=== PATIENT | male | born 1990 | race Caucasian/White ===

== ENCOUNTER 2016-05-01 20:49 | Emergency (ER) | payer OTHER ==
[~2016-05-01] VITALS: Ht 175.3 cm; Wt 120.0 kg
[~2016-05-01 20:49] MED LIST: AMO500 PO; AMOX1TAB10 PO; HYDR-3498 PO; IBUP-1542 PO; NPH10OT LEFT EAR
[2016-05-01 21:32] VITALS: Ht 175.3 cm; Wt 120.0 kg
[2016-05-01] MEDS ORDERED: CIPR7.5D4 LEFT EAR (21:55)
[2016-05-01] MEDS ORDERED: IBUP-1542 PO (21:55)
--- NOTE | 2016-05-01 22:01 | ERD ---
ER Documentation Chief Complaint Date/Time DATE: 05/01/16 TIME: 21:56 Chief Complaint LEFT EAR PAIN X 2 DAYS HPI 25-year-old male presents here in emergency department for complaints of left ear pain for today. Patient described the pain as sharp pain, 6/10 scale, is worse upon movement of the outer ear area. Patient has some serous discharge. Patient does not have any fever or chills. Patient did not have any trauma in the ear. Patient does not have any foreign body in the ear. Patient does not have any problems with hearing. ROS All systems reviewed and are negative except as per history of present illness. Medications Home Meds Active Scripts Ibuprofen* (Motrin*) 600 Mg Tab, 600 MG PO Q6H Y for PAIN AND OR ELEVATED TEMP, #30 TAB Prov:ANNAMARIA HEARD [facility] 05/01/16 Ciprofloxacin Hcl/Dexameth (Ciprodex Otic Suspension) 7.5 Ml Drops.susp, 4 DROP LEFT EAR BID for 7 Days, EA Prov:ANNAMARIA HEARD [facility] 05/01/16 Ibuprofen* (Ibuprofen*) 600 Mg Tablet, 600 MG PO Q8, #14 TAB Prov:SEKOU LUNA DO 02/17/16 Amoxicillin* (Amoxicillin*) 500 Mg Cap, 500 MG PO TID for 7 Days, CAP Prov:CHERYLSEKOU DO 02/17/16 Neomycin/Polymyxin/Hydrocort* (Cortisporin* Otic) 10 Ml Susp, 4 DROP LEFT EAR QID for 7 Days, EA Prov:CHERYL,[facility] DO 02/17/16 Amoxicillin/Potassium Clav (Amox-Clav 875-125 mg Tablet) 875-125 mg Tab, 1 TAB PO BID for 7 Days, #14 TAB Prov:CHIN JORDAN PA-C 12/23/15 Neomycin/Polymyxin/Hydrocort* (Cortisporin* Otic) 10 Ml Susp, 4 DROP LEFT EAR QID for 7 Days, EA Prov:CHIN JORDAN PA-C 12/23/15 Hydrocodone Bit-Acetaminophen* ([place]*) 5-325 Mg Tab, 1 TAB PO Q4H Y for PAIN, # 10 TAB Prov:ERIN LOMAX PA-C 10/30/15 Reported Medications [None] No Conflict Check 06/15/09 Allergies Allergies: Coded Allergies: No Known Allergies (Verified Allergy, Mild, 06/15/09) PMhx/Soc History of Surgery: Yes (Appendectomy.) Hx Neurological Disorder: No Hx Respiratory Disorders: Yes (ASTHMA) Hx Cardiac Disorders: No Hx Miscellaneous Medical Probl: No Hx Alcohol Use: Yes (social drinker.) Hx Substance Use: No Hx Tobacco Use: No FmHx Family History: No coronary disease, No diabetes, No other Physical Exam Vitals Vital Signs Date Time Temp Pulse Resp B/P Pulse Ox O2 Delivery O2 Flow Rate FiO2 05/01/16 21:32 98.5 107 20 131/61 97 Physical Exam GENERAL: The patient is well developed and appropriate for usual state of health, in no apparent distress. HEENT: Atraumatic. Ears: Normal tympanic membrane, no erythema or bulging. Left ear tympanic membrane is noted to be erythematous and swelling, with serous discharge coming from the left ear. Right ear canal is normal.. Nose: normal nasal turbinates, no erythema or swelling. Normal nasal discharge. Throat: oropharynx clear. No tonsillar swelling or tonsillar exudates. No lymphadenopathy. CHEST: Clear to auscultation bilaterally. There are no rales, wheezes or rhonchi. HEART: Regular rate and rhythm. No murmurs, clicks, rubs or gallops. No S3 or S4. ABDOMEN: Soft, nontender and nondistended. Good bowel sounds. No rebound or guarding. No gross peritonitis. No gross organomegaly or masses. No Mcqueen sign or McBurney point tenderness. BACK: No midline or flank tenderness. EXTREMITIES: Equal pulses bilaterally. There is no peripheral clubbing, cyanosis or edema. No focal swelling or erythema. Full range of motion. Grossly neurovascularly intact. NEURO: Alert and oriented. Cranial nerves 2-12 intact. Motor strength in all 4 extremities with 5/5 strength. Sensation grossly intact. Normal speech and gait. SKIN: There is no apparent rash or petechia. The skin is warm and dry. HEMATOLOGIC AND LYMPHATIC: There is no evidence of excessive bruising or lymphedema. No gross cervical, axillary, or inguinal lymphadenopathy. Procedures/MDM Medical decision making: Patient's symptoms of left ear pain most likely consistent with otitis externa. No symptoms of otitis media or mastoiditis. No cellulitis noted. No foreign body noted in the ear. No tympanic membrane perforation noted. No cerumen impaction noted. No symptoms of sepsis at this time. Patient appears well and is hemodynamically stable. Prescription was given for Ciprodex otic solution, is advised to follow with primary care doctor in 2-3 days for reevaluation of symptoms. Patient is advised to return to emergency department for any worsening symptoms. Departure Diagnosis: Primary Impression: Otitis externa Otitis externa type: unspecified type Laterality: left Chronicity: acute Qualified Code: H60.502 - Acute otitis externa of left ear, unspecified type Condition: Stable Patient Instructions: External Ear Infection (Adult) ANNAMARIA HEARD NP May 01, 2016 22:01
== END 2016-05-01 22:17 | disposition home or self-care (01) ==
LOC: FTE 20:49
DX: H60.502 Unspecified acute noninfective otitis externa, left ear (principal); J45.909 Unspecified asthma, uncomplicated
CPT/HCPCS: 99283

== ENCOUNTER 2016-11-01 03:29 | Emergency (ER) | payer OTHER ==
[~2016-11-01] VITALS: Ht 175.3 cm; Wt 120.5 kg
[~2016-11-01 03:29] MED LIST changes: +CIPR7.5D4 LEFT EAR
[2016-11-01 03:51] VITALS: Ht 175.3 cm; Wt 120.5 kg
--- NOTE | 2016-11-01 06:16 | ERD ---
ER Documentation Chief Complaint Date/Time DATE: 11/01/16 TIME: 06:15 Chief Complaint L ear pain for a week HPI 26-year-old male presents emergency department for left ear pain for 3 days. Denies headache, loss of consciousness, dizziness, blurry vision, changes in vision, photophobia, facial pain, throat pain, difficulty swallowing, neck pain , shoulder pain, chest pain, cough, hemoptysis, abdominal pain, back pain, loss of appetite, nausea, vomiting, hematochezia, diarrhea, constipation, urinary symptoms, bladder and bowel incontinences, extremity weakness, extremity tenderness, numbness or tingling sensation, difficulty walking, recent travel, recent exposure to illness, recent antibiotic use in the last 3 months, fever, chills. Allergy: No known drug allergies. PMH: No past medical history. Medications: Not taking any prescription medications at home. Surgery: Appendectomy. Family history: Denies. Primary Social History: Works as a cashier host/hostess. Occasionally drinks alcoholic beverages. Denies smoking, use of illegal drugs. ROS All systems reviewed and are negative except as per history of present illness. Medications Home Meds Active Scripts Acetaminophen* (Tylenol*) 325 Mg Tablet, 2 TAB PO Q6 Y for PAIN AND OR ELEVATED TEMP, #20 TAB Prov:TD ARNETT 11/01/16 Ibuprofen* (Motrin*) 800 Mg Tab, 800 MG PO Q8 Y for PAIN AND OR ELEVATED TEMP, # 30 TAB Prov:PAULASHANNAMICHAELAALESIA Jocelyn 11/01/16 Amoxicillin* (Amoxicillin*) 500 Mg Cap, 500 MG PO TID for 7 Days, CAP Prov:TD ARNETT 11/01/16 Ofloxacin Otic (Ofloxacin Otic) 5 Ml Drops, 5 DROP LEFT EAR BID for 10 Days, #1 BOTTLE Prov:PAULASHANNAMICHAELAALESIA Jocelyn 11/01/16 Ibuprofen* (Motrin*) 600 Mg Tab, 600 MG PO Q6H Y for PAIN AND OR ELEVATED TEMP, #30 TAB Prov:ANNAMARIA HEARD NP 05/01/16 Ciprofloxacin Hcl/Dexameth (Ciprodex Otic Suspension) 7.5 Ml Drops.susp, 4 DROP LEFT EAR BID for 7 Days, EA Prov:ANNAMARIA HEARD NP 05/01/16 Ibuprofen* (Ibuprofen*) 600 Mg Tablet, 600 MG PO Q8, #14 TAB Prov:SEKOU LUNA DO 02/17/16 Amoxicillin* (Amoxicillin*) 500 Mg Cap, 500 MG PO TID for 7 Days, CAP Prov:SEKOU LUNA DO 02/17/16 Neomycin/Polymyxin/Hydrocort* (Cortisporin* Otic) 10 Ml Susp, 4 DROP LEFT EAR QID for 7 Days, EA Prov:SEKOU LUNA DO 02/17/16 Amoxicillin/Potassium Clav (Amox-Clav 875-125 mg Tablet) 875-125 mg Tab, 1 TAB PO BID for 7 Days, #14 TAB Prov:CHIN JORDAN PA-C 12/23/15 Neomycin/Polymyxin/Hydrocort* (Cortisporin* Otic) 10 Ml Susp, 4 DROP LEFT EAR QID for 7 Days, EA Prov:CHIN JORDAN PA-C 12/23/15 Hydrocodone Bit-Acetaminophen* ([place]*) 5-325 Mg Tab, 1 TAB PO Q4H Y for PAIN, # 10 TAB Prov:ERIN LOMXA PA-C 10/30/15 Reported Medications [None] No Conflict Check 06/15/09 Allergies Allergies: Coded Allergies: No Known Allergies (Verified Allergy, Mild, 06/15/09) PMhx/Soc History of Surgery: Yes (Appendectomy.) Hx Neurological Disorder: No Hx Respiratory Disorders: Yes (ASTHMA) Hx Cardiac Disorders: No Hx Miscellaneous Medical Probl: No Hx Alcohol Use: Yes (social drinker.) Hx Substance Use: No Hx Tobacco Use: No Smoking Status: Never smoker Physical Exam Vitals Vital Signs Date Time Temp Pulse Resp B/P Pulse Ox O2 Delivery O2 Flow Rate FiO2 11/01/16 03:51 98.1 81 18 140/76 98 Physical Exam CONSTITUTIONAL: Well-appearing; well-nourished; in no apparent distress. HEAD: Normocephalic; atraumatic. EYES: Conjunctiva clear, sclera non-icteric, EOM intact. PERRLA Ears: Right ear: Hearing intact. EACs clear, TMs non-bulging, non-inflamed, translucent & mobile, ossicles normal appearance, No obstructions, no erythema, no discharges Left ear: Hearing intact. EACs clear, TM is bulging. No signs of effusion. External canal is inflamed. Tenderness to palpation to outer ear. No obstructions, no erythema, no discharges Nose: No obstructions. No polyps. No external lesions. Mucosa non-inflamed. No external lesions, septum and turbinates normal. No rhinorrhea. No discharges. Frontal sinus is non-tender to palpation. Maxillary sinus is non-tender to palpation. MOUTH: Moist mucous membranes, no lesion, no obstructions, no vesicles, no thrush, patent airway Throat: Uvula in midline. Right tonsil is +1 with no erythema, no exudate. Left tonsil is +1 with no erythema, no exudate. Tolerating secretions well. Good gag reflex. Patent airway. Neck: Supple, without lesions, bruits, or adenopathy. No mass. Thyroid non- enlarged and non-tender to palpation. CHEST: Symmetrical chest. Respirations even and not labored. No retractions noted. CARDIOVASCULAR: Normal S1, S2. RRR. No murmurs, gallops. RESPIRATORY: Normal chest excursion with respiration; breath sounds clear and equal bilaterally; no wheezes, rhonchi, or rales. Breathing even and unlabored. Speaking in clear, full, and complete sentences w/ ease. ABDOMEN: Normal bowel sounds normal. Soft, round, non-distended, non-guarding, no tenderness, no rebound, no organomegaly, no masses, no pulsating abdominal mass. No hernia. No peritoneal signs. : No CVA tenderness. BACK: Symmetrical shoulder. Spine is midline without deformity, tenderness. No evidence of trauma or deformity. PELVIS: Stable pelvis. No evidence of trauma or deformity. MUSCULOSKELETAL: Normal gait and station. No misalignment, asymmetry, crepitation, defects, tenderness, masses, effusions, decreased range of motion, instability, atrophy or abnormal strength or tone in the head, neck, spine, ribs , pelvis or extremities. No calf tenderness. NEUROVASCULAR: Distal pulses are present. Pedal pulse are present, equal, and normal. Capillary refills are < 2 seconds. NEUROLOGIC: Alert and oriented x4. Speaks full and clear sentences. Cranial Nerves II-XII normal. Sensation to pain, touch, and proprioception normal. Grossly unremarkable. No neurologic deficits. Romberg test is negative. PSYCHOLOGICAL: The patients mood and manner are appropriate. No hallucinations , delusions. Not SI. Not HI. Has the capacity to decide for self SKIN: Normal for age and ethnicity; warm; dry; good turgor; no apparent lesions or exudates. No rashes, hives, discoloration. Intact. Procedures/MDM Examination: Please see physical examination. Disease process, medical treatment was explained to the patient and family member. They verbalized understanding and agreed with the medical treatment, and follow-up care. Differential diagnosis: Otitis externa versus otitis media versus otalgia Medical decision m[age]-year-old male presents emergency department for left ear pain for 3 days. Patient's complaint, patient's history about his complaint, my physical findings, my reevaluation are consistent with final diagnosis of otitis media and otitis externa to left ear. Medications prescribed are the following: Ofloxacin otic drops. Amoxicillin. Motrin. Patient and family member are made aware of the side effects and adverse reactions of the medications prescribed. Instructed on when to seek emergent and medical attention in case allergic/anaphylactic reactions or severe side effects and or adverse reactions to medications. Patient and family member verbalized understanding. Patient instructed Instructed to follow-up with his PCP in 24-48 hours. PCP to refer patient to [facility]. Instructed to Call 911 for chest pain, shortness of breath. Advised to come back here in ED as soon as possible for severity of symptoms which includes but not limited to: any new symptoms; shortness of breath/difficulty of breathing; cardiovascular changes; severe gastrointestinal symptoms; signs and symptoms of bleeding and or infection; signs of compartment syndrome/neurovascular changes; neurological changes/deficits. Patient and family member verbalized understanding. Upon discharge, patient is alert and oriented x 4, speaks full and clear sentences, denies pain, has no neurological deficits, has no neurovascular deficits, difficulty of breathing. Breathing even and unlabored. Lung sounds are clear to auscultation. Not in distress. Appears comfortable. Ambulatory with steady gait. Appears satisfied with care provided here in ED. Departure Diagnosis: Primary Impression: Left ear pain Additional Impressions: Otitis media Otitis externa Condition: Good Additional Instructions: Instructed to follow-up with his PCP in 24-48 hours. PCP to refer patient to [facility]. Instructed to Call 911 for chest pain, shortness of breath. Advised to come back here in ED as soon as possible for severity of symptoms which includes but not limited to: any new symptoms; shortness of breath/difficulty of breathing; cardiovascular changes; severe gastrointestinal symptoms; signs and symptoms of bleeding and or infection; signs of compartment syndrome/neurovascular changes; neurological changes/deficits. Patient and family member verbalized understanding. TD ARNETT Nov 01, 2016 06:16
[2016-11-01] MEDS ORDERED: OFLO5DRO7 LEFT EAR (06:17)
[2016-11-01] MEDS ORDERED: AMO500 PO (06:18)
[2016-11-01] MEDS ORDERED: IBUP800T25 PO (06:18)
[2016-11-01] MEDS ORDERED: ACET325T33 PO (06:19)
== END 2016-11-01 06:38 | disposition home or self-care (01) ==
LOC: FTE 03:29
DX: H92.02 Otalgia, left ear (principal); H60.92 Unspecified otitis externa, left ear; H66.92 Otitis media, unspecified, left ear; J45.909 Unspecified asthma, uncomplicated
CPT/HCPCS: 99284

== ENCOUNTER 2018-03-19 00:17 | Emergency (ER) | END 2018-03-19 00:47 | disposition home or self-care (01) ==